=== PATIENT | female | born 1975 | race Caucasian/White ===

== ENCOUNTER 2023-09-07 18:14 | Emergency (ER) | payer OTHER ==
[~2023-09-07] VITALS: Ht 160 cm; Wt 74.8 kg
[2023-09-07 18:14] VITALS: BP 163/110; PULSE 125; RESP 18; TEMP 98.1; O2SAT 100
[2023-09-07 19:17] VITALS: BP 145/88; PULSE 88; RESP 16; TEMP 98.1; O2SAT 100
== END 2023-09-07 19:18 ==
LOC: MED 18:14
DX: R03.0 Elevated blood-pressure reading, without diagnosis of hypertension (principal)
CPT/HCPCS: 99283